=== PATIENT | female | born 1935 | race Caucasian/White ===

== ENCOUNTER → 2017-10-12 | Outpatient (CLI) | payer MEDICARE, OTHER ==
[~2017-10-12] MED LIST: ASPIRIN325; GLUCOSAMINE HC500 MG PO; MIRTAZAPINE7.5 MG PO; MULTIVITAMIN PO; VITAMIN D3400 UNIT PO
== END ==
LOC: M.RAD 09:22
DX: Z12.31 Encounter for screening mammogram for malignant neoplasm of breast (principal)

== ENCOUNTER → 2018-10-14 | Outpatient (CLI) | payer MEDICARE, OTHER | LOC: M.RAD 12:43 | DX: Z12.31 Encounter for screening mammogram for malignant neoplasm of breast (principal) ==

== ENCOUNTER → 2020-01-10 | Outpatient (CLI) | payer MEDICARE, OTHER | LOC: M.RAD 12:54 | PROVIDERS: ATTEND Internal Medicine | DX: Z12.31 Encounter for screening mammogram for malignant neoplasm of breast (principal) ==

== ENCOUNTER → 2021-01-17 | Outpatient (CLI) | payer MEDICARE, OTHER ==
[2021-01-17 11:45] LABS: CREATININE 0.9 mg/dL (0.6-1.3)
== END ==
LOC: M.LAB 11:14 → M.CT 13:00
PROVIDERS: ATTEND Physician Assistant
DX: N28.1 Cyst of kidney, acquired (principal); R14.0 Abdominal distension (gaseous); R19.8 Other specified symptoms and signs involving the digestive system and abdomen; R19.5 Other fecal abnormalities; M47.815 Spondylosis without myelopathy or radiculopathy, thoracolumbar region; I87.8 Other specified disorders of veins

== ENCOUNTER 2021-03-25 11:22 | Inpatient (IN) | payer MEDICARE, OTHER ==
[~2021-03-25] VITALS: Ht 165.1 cm; Wt 49.9 kg
[2021-03-25 11:31] VITALS: BP 211/108
[2021-03-25] MEDS ORDERED: ASA81BEC PO (11:34)
[2021-03-25] MEDS ORDERED: VITAMIN D31250 MC1 (11:34)
[2021-03-25] MEDS ORDERED: LIPITOR80 MG PO (11:34)
[2021-03-25] MEDS ORDERED: BENTYL 10 MG CA10 MG PO (11:35)
[2021-03-25] MEDS ORDERED: MAG-TAB SR84 MG PO (11:35)
[2021-03-25] MEDS ORDERED: CARDIZEM CD 18180 M3 PO (11:35)
[2021-03-25 12:15] LABS: ABSOLUTE BASOPHILS 0.1 thou/uL (0.0-0.2); ABSOLUTE LYMPHOCYTES 2.2 thou/uL (0.8-5.3); ABSOLUTE MONOCYTES 0.7 thou/uL (0.0-1.2); ABSOLUTE NEUTROPHILS 5.5 thou/uL (1.6-8.1); BASOPHILS 0.6 %; EOSINOPHILS 0.5 %; HEMATOCRIT 39.7 % (37.0-47.0); HEMOGLOBIN 13.4 gm/dL (12.0-15.0); LYMPHOCYTES 25.8 %; MCH 32.6 pg (26.0-34.0); MCHC 33.7 g/dL (28.0-37.0); MCV 96.6 fL (80.0-100.0); MONOCYTES 8.1 %; MPV 6.6 fl. (7.2-11.1); NUCLEATED RBCS 0 /100WBC; PLATELET COUNT* 253 thou/uL (150-400); RDW-CV 15.8 % (10.5-14.5); WBC 8.5 thou/uL (4.0-11.0)
[2021-03-25 12:24] LABS: CALCIUM 8.8 mg/dL (8.5-10.1); CREATININE 0.9 mg/dL (0.6-1.3); POTASSIUM 3.4 mmol/L (3.5-5.1)
[2021-03-25 12:28] LABS: ALBUMIN 4.1 g/dL (3.4-5.0); TOTAL BILIRUBIN 0.7 mg/dL (<0.1-1.0); TOTAL PROTEIN 7.1 g/dL (6.4-8.2)
[2021-03-25 12:32] LABS: URINE BILIRUBIN NEGATIVE (Negative); URINE BLOOD NEGATIVE (Negative); URINE CLARITY CLEAR; URINE COLOR YELLOW; URINE GLUCOSE-RANDOM NEGATIVE (Negative); URINE KETONES NEGATIVE (Negative); URINE LEUKOCYTES-REFLEX NEGATIVE (Negative); URINE NITRITE-REFLEX NEGATIVE (Negative); URINE PROTEIN NEGATIVE (Negative); URINE UROBILINOGEN 0.2 E.U./dl (0.2-1.0)
[2021-03-25 12:33] LABS: INFLUENZA A ANTIGEN Negative (Negative); INFLUENZA B ANTIGEN Negative (Negative)
[2021-03-25 15:14] VITALS: BP 153/71
[2021-03-25 16:00] VITALS: BP 108/68; BP 111/71
[2021-03-25 20:00] VITALS: BP 124/75
[2021-03-26] VITALS: BP 156/71
[2021-03-26 04:34] VITALS: BP 141/79
[2021-03-26 07:51] LABS: ABSOLUTE EOSINOPHILS 0.1 thou/uL (0.0-0.7); ABSOLUTE LYMPHOCYTES 1.3 thou/uL (0.8-5.3); ABSOLUTE MONOCYTES 0.6 thou/uL (0.0-1.2); ABSOLUTE NEUTROPHILS 3.7 thou/uL (1.6-8.1); BASOPHILS 0.2 %; HEMOGLOBIN 13.5 gm/dL (12.0-15.0); LYMPHOCYTES 22.5 %; MCH 32.2 pg (26.0-34.0); MCHC 33.6 g/dL (28.0-37.0); MCV 95.8 fL (80.0-100.0); MPV 6.5 fl. (7.2-11.1); NUCLEATED RBCS 0 /100WBC; PLATELET COUNT* 240 thou/uL (150-400); POLYS 65.3 %; RBC 4.18 mil/uL (4.20-5.00); RDW-CV 15.6 % (10.5-14.5); WBC 5.7 thou/uL (4.0-11.0)
[2021-03-26 07:59] LABS: CALCIUM 8.5 mg/dL (8.5-10.1); CREATININE 0.7 mg/dL (0.6-1.3); POTASSIUM 3.6 mmol/L (3.5-5.1)
[2021-03-26 09:00] VITALS: BP 161/83
[2021-03-26 12:27] VITALS: BP 167/82
--- NOTE | 2021-03-26 13:47 | EKG ---
[place] [address] ELECTROCARDIOGRAM REPORT Name: DESTINEE REYES Room: [address] ADM IN M.R.#: [id number] Admission: 03/25/21 Attend Phys: Oc Scruggs Discharge: Date of : 39 Date of Service: 03/25/21 1455 Report #: [id number] THIS REPORT FOR: //name// [facility] ED Test Date: 2021-03-25 Test Time: 14:55:28 Pat Name: DESTINEE REYES Department: Room: [address] Gender: F Road Supervisor: JHOAN : 1935 Requested By: Ray Peters Order Number: [id number] MD: Milan Cruz Measurements Intervals [place] Rate: 57 P: 57 RI: 123 QRS: -48 QRSD: 135 T: -14 QT: 448 QTc: 437 Interpretive Statements Sinus rhythm RBBB and LAFB Baseline wander in lead(s) II,III,aVF,V4,V5 No previous ECG available for comparison Electronically Signed On 03-26-2021 13:46:51 CDT by Milan Cruz [email or web address] <ELECTRONICALLY SIGNED> By: Milan Cruz MD, FAC 03/26/21 1346 1455 1455 Milan Cruz MD, FAC /EPI
--- NOTE | 2021-03-26 14:00 | EKG ---
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1883 : 1935 Requested By: Abel Hess Order Number: [id number] Reading MD: Milan Cruz Measurements Intervals [place] Rate: 58 P: 34 IA: 121 QRS: -51 QRSD: 139 T: 12 QT: 474 QTc: 466 Interpretive Statements Sinus rhythm Right bundle branch block Left ventricular hypertrophy Anterior Q waves, possibly due to LVH Compared to ECG 03/25/2021 14:55:28 Left ventricular hypertrophy now present Electronically Signed On 03-26-2021 14:00:44 CDT by Milan Cruz [email or web address] <ELECTRONICALLY SIGNED> By: Milan Cruz MD, [facility] 03/26/21 1400 1339 1339 Milan Cruz MD, [facility] /EPI
[2021-03-26 15:51] VITALS: BP 177/94
[2021-03-26 20:12] VITALS: BP 152/87
[2021-03-27 00:07] VITALS: BP 140/81
[2021-03-27 04:40] LABS: HEMOGLOBIN 14.3 gm/dL (12.0-15.0); MCH 32.2 pg (26.0-34.0); MCHC 34.1 g/dL (28.0-37.0); MCV 94.4 fL (80.0-100.0); MPV 6.5 fl. (7.2-11.1); RBC 4.45 mil/uL (4.20-5.00); RDW-CV 15.5 % (10.5-14.5); WBC 8.7 thou/uL (4.0-11.0)
[2021-03-27 04:42] VITALS: BP 150/87
[2021-03-27 05:06] LABS: CALCIUM 9.1 mg/dL (8.5-10.1); CREATININE 0.6 mg/dL (0.6-1.3); POTASSIUM 3.5 mmol/L (3.5-5.1)
[2021-03-27 09:02] VITALS: BP 139/89
[2021-03-27] MEDS ORDERED: HYDROCHLOROTHIA25 M1 PO (10:57)
[2021-03-27 11:21] VITALS: BP 126/77
[2021-03-27 14:50] VITALS: BP 126/77
== END 2021-03-27 15:45 | disposition home or self-care (01) | DRG 305 ==
LOC: M.ERS 11:22 → M.2W 13:23 → M.TBA-ER 13:23 → M.2W 15:27
PROVIDERS: Internal Medicine; Nurse Practitioner Family; ADMIT Internal Medicine; ATTEND Internal Medicine
DX: I16.1 Hypertensive emergency (principal); E44.1 Mild protein-calorie malnutrition; Z68.1 Body mass index [BMI] 19.9 or less, adult; Z20.822 Contact with and (suspected) exposure to COVID-19; Z88.8 Allergy status to other drugs, medicaments and biological substances; Z79.899 Other long term (current) drug therapy

== ENCOUNTER → 2021-06-19 | Outpatient (CLI) | payer MEDICARE, OTHER ==
[~2021-06-19] MED LIST changes: +ASA81BEC PO; +BENTYL 10 MG CA10 MG PO; +CARDIZEM CD 18180 M3 PO; +HYDROCHLOROTHIA25 M1 PO; +LIPITOR80 MG PO; +MAG-TAB SR84 MG PO; +VITAMIN D31250 MC1
== END ==
LOC: M.ULTRA 08:27
PROVIDERS: ATTEND Internal Medicine Gastroenterology
DX: I70.0 Atherosclerosis of aorta (principal); R10.10 Upper abdominal pain, unspecified

== ENCOUNTER → 2021-08-05 | Outpatient (CLI) | payer MEDICARE | LOC: M.NUC 06:48 | PROVIDERS: ATTEND Internal Medicine Gastroenterology | DX: R19.7 Diarrhea, unspecified (principal); R10.9 Unspecified abdominal pain ==

== ENCOUNTER 2021-08-13 19:34 | Emergency (ER) | payer MEDICARE ==
[~2021-08-13] VITALS: Ht 165.1 cm; Wt 49.9 kg
[2021-08-13 20:54] VITALS: BP 184/87
--- NOTE | 2021-08-14 10:02 | EKG ---
[place] [address] ELECTROCARDIOGRAM REPORT Name: DESTINEE REYES Room: [facility]#: [id number] Admission: 08/13/21 Attend Phys: Discharge: 08/13/21 Date of : 39 Date of Service: 08/13/212011 Report #: [id number] THIS REPORT FOR: //name// [facility] ED Test Date: 2021-08-13 Test Time: 20:12:26 Pat Name: DESTINEE REYES Department: Room: Gender: Learning Program Manager: : 1935 Requested By: Breezy Kinsey Order Number: [id number] MD: Milan Cruz Measurements Intervals [place] Rate: 60 P: 82 [place]: 148 QRS: 19 QRSD: 136 T: 61 QT: 464 QTc: 464 Interpretive Statements Sinus arrhythmia Right bundle branch block Compared to ECG 03/26/2021 13:39:45 Sinus rhythm no longer present Left ventricular hypertrophy no longer present Electronically Signed On 08-14-2021 10:02:19 TEACHER PHYSICALLY IMPAIRED by Mlian Cruz [email or web address] <ELECTRONICALLY SIGNED> By: Milan Cruz MD, FACC 08/14/21 1002 11 11 Milan Cruz MD, FAC /EPI
== END 2021-08-13 20:54 | disposition home or self-care (01) ==
LOC: M.ERS 19:34
DX: F41.9 Anxiety disorder, unspecified (principal); T40.715A Adverse effect of cannabis, initial encounter; Z98.51 Tubal ligation status; Z98.890 Other specified postprocedural states; Z79.899 Other long term (current) drug therapy; Z79.82 Long term (current) use of aspirin; Z88.8 Allergy status to other drugs, medicaments and biological substances; Y92.89 Other specified places as the place of occurrence of the external cause